=== PATIENT | female | born 1965 | race African-American/Black ===

== ENCOUNTER 2019-01-23 18:25 | Emergency (ER) | payer OTHER ==
[2019-01-23 19:25] VITALS: BP 173/99; PULSE 76; TEMP 97.9; BMI 21.3
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
[2019-01-23] MEDS ORDERED: ACETAMINOPHEN 500 MG TABLET (FP) ONE ×2 (20:46→21:01)
[2019-01-23] MEDS ORDERED: ACETAMINOPHEN 500 MG TABLET (FP) PO ONE (20:47)
== END 2019-01-23 21:21 | disposition home or self-care (01) ==
LOC: JERFT 18:25
DX: S40.011A Contusion of right shoulder, initial encounter (principal); V03.90XA Pedestrian on foot injured in collision with car, pick-up truck or van, unspecified whether traffic or nontraffic accident, initial encounter; Y92.414 Local residential or business street as the place of occurrence of the external cause; Y93.89 Activity, other specified; Y99.8 Other external cause status
CPT/HCPCS: 73030-TC-RT-FY; 99281-25

== ENCOUNTER 2019-08-01 15:13 | Emergency (ER) | payer OTHER ==
[2019-08-01 15:19] VITALS: BP 170/95; PULSE 74; TEMP 98; BMI 18.0
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
== END 2019-08-01 17:14 | disposition home or self-care (01) ==
LOC: JERFT 15:13
DX: S16.1XXA Strain of muscle, fascia and tendon at neck level, initial encounter (principal); V43.52XA Car driver injured in collision with other type car in traffic accident, initial encounter; Y92.414 Local residential or business street as the place of occurrence of the external cause; Y93.89 Activity, other specified; Y99.8 Other external cause status; I10 Essential (primary) hypertension
CPT/HCPCS: 99281-25